=== PATIENT | male | born 1945 | race Two or more races ===

== ENCOUNTER → 2017-09-16 09:40 | Outpatient (CLI) | payer OTHER | END | disposition home or self-care (01) | LOC: LAB 09:40 | DX: N30.00 Acute cystitis without hematuria (principal); R82.79 Other abnormal findings on microbiological examination of urine ==

== ENCOUNTER 2017-09-16 10:23 | Outpatient (CLI) | payer OTHER | END 2017-09-16 10:28 | disposition home or self-care (01) | LOC: RAD 10:23 | DX: N40.0 Benign prostatic hyperplasia without lower urinary tract symptoms (principal); R97.20 Elevated prostate specific antigen [PSA]; N30.00 Acute cystitis without hematuria ==

== ENCOUNTER 2022-04-27 14:37 | Emergency (ER) | payer OTHER ==
[~2022-04-27] VITALS: Ht 167.6 cm; Wt 70.3 kg
[2022-04-27] MEDS ORDERED: JANUVIA25 MG PO (15:11)
[2022-04-27] MEDS ORDERED: AVAPRO75 MG PO (15:11)
[2022-04-27] MEDS ORDERED: DOXAZOSIN MESYLA1 MG PO (15:12)
== END 2022-04-27 18:38 | disposition home or self-care (01) ==
LOC: ER 14:37
DX: L03.113 Cellulitis of right upper limb (principal)

== ENCOUNTER 2024-03-22 10:00 | Inpatient (IN) | payer OTHER ==
[~2024-03-22] VITALS: Ht 195.6 cm; Wt 45.4 kg
[~2024-03-22 10:00] MED LIST: AVAPRO75 MG PO; DOXAZOSIN MESYLA1 MG PO; JANUVIA25 MG PO
--- NOTE | 2024-03-22 10:22 | NUR ---
PACIENTE ALERTA, CON ALZHEIMER, ACOMPANADO DE ESPOSA. ESTA REFIERE EL MISMO LLEVA 3 BEEBE CON DOLOR ABDOMINAL, DEBILIDAD E INAPETENTE
[2024-03-22] MEDS ORDERED: TRADJENTA5 MG PO (10:24)
[2024-03-22] MEDS ORDERED: PRAVASTATIN SOD20 MG PO (10:26)
[2024-03-22] MEDS ORDERED: TRAZODONE HCL150 MG (10:27)
[2024-03-22] MEDS ORDERED: BUSPIRONE HCL7.5 MG (10:27)
[2024-03-22] MEDS ORDERED: NAMENDA XR7 MG PO (10:27)
[2024-03-22] MEDS ORDERED: ZYLOPRIM100 M1 (10:28)
[2024-03-22] MEDS ORDERED: cloNIDine HCL 0.2 MG TABLET PO ONE (10:45)
[2024-03-22] MEDS ORDERED: KETOROLAC TROMETHAMINE 30 MG VIAL IV ONE (10:45)
--- NOTE | 2024-03-22 11:06 | NUR ---
PTE ALERTA Y ORIENTADO X3, RN REYES ORIENTA SOBRE TX MEDICO Y REFIERE ACEPTAR. CANALIZA Y COLECTA MUESTRAS DE LAB BAJO MEDIDAS ASEPTICAS. ADMINISTRA MED TORIE ORDEN MEDICA Y NO PRESENTA REACCION
[2024-03-22] MEDS ORDERED: ENALAPRILAT DIHYDRATE 1.25 MG/ML VIAL IV STA (11:07)
[2024-03-22 11:30] LABS: HEMOGLOBIN 16.5 g/dL (13-16.00); MEAN CELL VOLUME 93.5 fL (80.0-100.00); MEAN CORPUSCULAR HEMOGLOBIN 30.8 pg (27.00-32.0); MEAN CORPUSCULAR HGB CONC 32.9 g/dl (32.0-36.0); PLATELET COUNT 217 K/uL (150-450); RED BLOOD COUNT 5.35 M/uL (4.00-6.00); RED CELL DISTRIBUTION WIDTH 14.9 % (11.5-14.5)
[2024-03-22 13:25] LABS: CALCIUM 9.4 mg/dL (8.5-10.1); GFR 12.33; POTASSIUM 4.26 mEq/L (3.5-5.1)
[2024-03-22 13:34] LABS: CREATININE SERUM 4.61 mg/dL (0.70-1.30)
[2024-03-22] MEDS ORDERED: 0.9 % SODIUM CHLORIDE 1,000 ML IV SCH ×2 (14:15→19:15)
--- NOTE | 2024-03-22 16:46 | NUR ---
SE RECIBE PACIENTE A UNIDAD DE CHEST PAIN, CAMA #[id number]. PACIENTE ALERTA Y DESORIENTADO X3. SE CONECTA A MONITOR CARDIACO Y OXIMETRIA DE PULSO CONTINUA. AL MOMENTO PRESENTA VITALES BP: 164/94 (119), HR: 69 Y SPO2: 100%. SE OBSERVA CANALIZACION EN BRAZO BESSY CON ANGIO #18 QUE SE ENCUENTRA PATENTE, YAEL DE EDEMA Y PROCESOS INFECCIOSOS. SE ENCUENTRA CON UN 0.9NSS. EXTREMIDADES INFERIORES Y SUPERIORES LIBRES DE EDEMA. PENDIENTE CONSULTA CON MEDICINE Y U/A. SE MANTIENE EN OBSERVACION POR CAMBIOS SIGNIFICATIVOS.
[2024-03-22] MEDS ORDERED: PIPERACILLIN/TAZOBACTAM SODIUM 2.25 GM in DEXTROSE 5 % IN WATER 50 ML IV SCH (19:12)
[2024-03-22] MEDS ORDERED: IRBESARTAN 300 MG TABLET PO SCH (19:14)
[2024-03-22] MEDS ORDERED: ONDANSETRON HCL 4 MG in 0.9 % SODIUM CHLORIDE 50 ML IV PRN (19:15)
[2024-03-22] MEDS ORDERED: ACETAMINOPHEN 500 MG GEL..CAP PO PRN (19:15)
[2024-03-22 20:34] VITALS: BP 183/91; O2SAT 100
[2024-03-22] MEDS ORDERED: TRAZODONE HCL 50 MG TABLET PO SCH (21:00)
[2024-03-22] MEDS ORDERED: LORazepam 2 MG/ML VIAL IV STA (21:42)
[2024-03-22 21:54] LABS: PH,URINE 7.5 (5.0-8.0); URINE APPEARANCE Clear; URINE BILIRRUBIN Negative (NEGATIVE); URINE BLOOD Moderate; URINE COLOR Yellow; URINE GLUCOSE Negative (NEGATIVE); URINE KETONE Negative (NEGATIVE); URINE LEUKOCYTE Trace; URINE NITRATE Negative; URINE UROBILINOGEN 0.2 E.U./dl
[2024-03-22 21:57] LABS: URINE BACTERIA 34.2 uL (0.0-1933); URINE EPITHELIAL CELLS 6.6 uL (0.0-38.8); URINE RBC 423.7 uL (0.0-20.8); URINE WBC 52.6 uL (0.0-23.2)
[2024-03-22 21:58] LABS: URINE CAST 0.14 uL (0.0-1.40); URINE PROTEIN 100 (NEGATIVE)
[2024-03-23] VITALS (10 sets, daily range): BP systolic 148–210; BP diastolic 77–99; O2SAT 96–100
[2024-03-23 06:43] LABS: INR 1.06; PARTIAL THROMBOPLASTIN TIME 23.9 SECONDS (22.0-34.0); PROTHROMBIN TIME 11.5 SECONDS (9.0-11.5)
[2024-03-23 06:44] LABS: CALCIUM 9.5 mg/dL (8.5-10.1); CREATININE SERUM 3.66 mg/dL (0.70-1.30); GFR 16.09; POTASSIUM 3.96 mEq/L (3.5-5.1)
[2024-03-23 06:45] LABS: MAGNESIUM 2.3 mg/dL (1.8-2.4); PHOSPHOROUS 3.6 mg/dL (2.5-4.9)
[2024-03-23 06:46] LABS: C-REACTIVE PROTEIN 9.99 MG/DL (0.00-0.29)
[2024-03-23 06:58] LABS: PH,URINE 5.5 (5.0-8.0); URINE APPEARANCE Cloudy; URINE BILIRRUBIN Negative (NEGATIVE); URINE BLOOD Large; URINE COLOR Orange; URINE GLUCOSE Negative (NEGATIVE); URINE KETONE Trace (NEGATIVE); URINE LEUKOCYTE Small; URINE NITRATE Negative; URINE UROBILINOGEN 0.2 E.U./dl
[2024-03-23 06:59] LABS: URINE BACTERIA 130.9 uL (0.0-1933); URINE CAST 5.15 uL (0.0-1.40); URINE EPITHELIAL CELLS 34.9 uL (0.0-38.8); URINE RBC 7664.3 uL (0.0-20.8); URINE WBC 143.7 uL (0.0-23.2)
[2024-03-23 07:20] LABS: URINE PROTEIN 100 (NEGATIVE)
[2024-03-23] MEDS ORDERED: ENOXAPARIN SODIUM 30 MG/0.3 ML SYRINGE SUBCUTANEO SCH (09:00)
[2024-03-23] MEDS ORDERED: MEMANTINE HCL 10 MG TABLET PO SCH (09:00)
[2024-03-23] MEDS ORDERED: PANTOPRAZOLE SODIUM 40 MG/VIAL VIAL IV SCH (09:00)
[2024-03-23] MEDS ORDERED: BUSPIRONE HCL 5 MG TABLET PO SCH (09:00)
[2024-03-23] MEDS ORDERED: AMLODIPINE BESYLATE 10 MG TABLET PO SCH (09:10)
[2024-03-23] MEDS ORDERED: METOPROLOL TARTRATE 25 MG TABLET PO SCH (09:10)
[2024-03-23] MEDS ORDERED: ENALAPRILAT DIHYDRATE 1.25 MG/ML VIAL IV NR (09:15)
[2024-03-23] MEDS ORDERED: hydrALAZINE HCL 20 MG VIAL IV PRN (11:15)
[2024-03-23 13:29] LABS: CREATININE URINE RANDOM 92.7 MG/DL (30-125)
[2024-03-23] MEDS ORDERED: DONEPEZIL HCL 10 MG TABLET PO SCH (17:00)
[2024-03-23] MEDS ORDERED: PIPERACILLIN/TAZOBACTAM SODIUM 2.25 GM in DEXTROSE 5 % IN WATER 50 ML IV SCH (21:00)
[2024-03-24 01:49] VITALS: BP 178/94
[2024-03-24 06:20] LABS: HEMATOCRIT 43.9 % (39.0-48.0); MEAN CELL VOLUME 92.7 fL (80.0-100.00); MEAN CORPUSCULAR HEMOGLOBIN 31.6 pg (27.00-32.0); MEAN CORPUSCULAR HGB CONC 34.1 g/dl (32.0-36.0); PLATELET COUNT 173 K/uL (150-450); RED BLOOD COUNT 4.73 M/uL (4.00-6.00)
[2024-03-24 06:30] LABS: CALCIUM 8.7 mg/dL (8.5-10.1); CREATININE SERUM 1.2 mg/dL (0.70-1.30); GFR 58.25; POTASSIUM 3.32 mEq/L (3.5-5.1)
[2024-03-24 08:44] VITALS: BP 130/66; O2SAT 98
[2024-03-24] MEDS ORDERED: CARVEDILOL 12.5 MG TABLET PO SCH (09:00)
[2024-03-24] MEDS ORDERED: LOSARTAN POTASSIUM 50 MG TABLET PO NR (10:00)
[2024-03-24] MEDS ORDERED: INSULIN LISPRO 1,000 UNIT/10 ML UNITS SUBCUTANEO PRN (11:00)
[2024-03-24] MEDS ORDERED: DEXTROSE 50 % IN WATER 0.5 G/ML DISP.SYRIN IV PRN (11:00)
[2024-03-24 18:00] VITALS: BP 160/85; O2SAT 98
[2024-03-24] MEDS ORDERED: INSULIN GLARGINE,HUM.REC.ANLOG 1,000 UNITS/10 ML UNITS SUBCUTANEO SCH (21:00)
[2024-03-25 02:40] VITALS: BP 180/78; O2SAT 98
[2024-03-25 08:59] VITALS: BP 168/87; O2SAT 99
[2024-03-25] MEDS ORDERED: HYDROCHLOROTHIAZIDE 25 MG TABLET PO SCH (09:00)
[2024-03-25] MEDS ORDERED: LOSARTAN POTASSIUM 50 MG TABLET PO SCH ×2 (09:00)
[2024-03-25] MEDS ORDERED: LOSARTAN POTASSIUM 100 MG TABLET PO SCH (09:00)
[2024-03-25] MEDS ORDERED: DIPHENHYDRAMINE HCL 50 MG/ML VIAL 1ML IV STA (15:14)
[2024-03-25] MEDS ORDERED: HALOPERIDOL LACTATE 5 MG/ML AMPUL IM STA (15:15)
[2024-03-25 16:44] VITALS: BP 172/96; O2SAT 95
[2024-03-25 19:22] LABS: HEMOGLOBIN 14.6 g/dL (13-16.00); MEAN CELL VOLUME 92.3 fL (80.0-100.00); MEAN CORPUSCULAR HEMOGLOBIN 31.4 pg (27.00-32.0); PLATELET COUNT 181 K/uL (150-450); RED BLOOD COUNT 4.66 M/uL (4.00-6.00); RED CELL DISTRIBUTION WIDTH 15.2 % (11.5-14.5)
[2024-03-25 19:53] LABS: CALCIUM 8.9 mg/dL (8.5-10.1); CREATININE SERUM 1.95 mg/dL (0.70-1.30); GFR 33.27; POTASSIUM 3.58 mEq/L (3.5-5.1)
[2024-03-26 01:14] VITALS: BP 174/97; O2SAT 93
[2024-03-26 06:37] LABS: CALCIUM 8.9 mg/dL (8.5-10.1); CREATININE SERUM 1.35 mg/dL (0.70-1.30); GFR 50.85; POTASSIUM 3.85 mEq/L (3.5-5.1)
[2024-03-26] MEDS ORDERED: CEFTRIAXONE SODIUM 2,000 MG in 0.9 % SODIUM CHLORIDE 100 ML IV SCH (17:00)
[2024-03-26] MEDS ORDERED: HALOPERIDOL LACTATE 5 MG/ML AMPUL IM SCH (21:00)
[2024-03-26] MEDS ORDERED: DIPHENHYDRAMINE HCL 50 MG/ML VIAL 1ML IV SCH (21:00)
== END 2024-03-26 21:05 | disposition home or self-care (01) | DRG 682 ==
LOC: ER 10:02 → MEDI 21:34 → SEC-K 21:34 → MEDI 03-23 15:32
PROVIDERS: Emergency Medicine; General Practice; ADMIT Student in an Organized Health Care Education/Training Program; ATTEND Student in an Organized Health Care Education/Training Program
PROC: BW21ZZZ Computerized Tomography (CT Scan) of Abdomen and Pelvis (ICD-10-PCS; principal; 2024-03-22)
PROC: BW21YZZ Computerized Tomography (CT Scan) of Abdomen and Pelvis using Other Contrast (ICD-10-PCS; 2024-03-24)
DX: N17.8 Other acute kidney failure (principal); A41.9 Sepsis, unspecified organism; R65.10 Systemic inflammatory response syndrome (SIRS) of non-infectious origin without acute organ dysfunction; N39.0 Urinary tract infection, site not specified; E86.0 Dehydration; I16.0 Hypertensive urgency; D72.828 Other elevated white blood cell count